=== PATIENT | female | born 1950 | race Hispanic/Latino ===

== ENCOUNTER 2016-06-24 09:27 | Inpatient (IN) | payer OTHER, MEDICARE ==
[2016-06-24] MEDS ORDERED: NORMAL SALINE 10 ML SYRINGE FLUSH IVP PRN ×2 (09:57→11:48)
[2016-06-24] MEDS ORDERED: ONDANSETRON 4 MG/2 ML VIAL IVP ONE (09:57)
[2016-06-24] MEDS ORDERED: Sodium Chloride 0.9% 1,000 ML PRIMARY IV ONE ×2 (09:57→11:48)
[2016-06-24 10:32] LABS: BASOPHILS # (AUTO) 0.02 10*3/UL; BASOPHILS % (AUTO) 0.2 % (0-1); EOSINOPHILS % (AUTO) 0 % (0-8); HEMATOCRIT 47.5 % (37.0-47.0); HEMOGLOBIN 16.1 g/dL (12.0-16.0); IMM GRAN % (AUTO) 0.2 % (0-5); IMM GRAN# (AUTO) 0.02 10*3/UL; LYMPHOCYTES # (AUTO) 1.37 10*3/uL; LYMPHOCYTES % (AUTO) 14.4 % (10-50); MEAN CORPUSCULAR HEMOGLOBIN 32.4 PG (27-31); MEAN CORPUSCULAR HGB CONC 33.9 g/dL (33-37); MEAN PLATELET VOLUME 10.1 FL (7.4-12.2); MONOCYTES # (AUTO) 1.17 10*3/UL (0.3-0.8); MONOCYTES % (AUTO) 12.3 % (5-15); NEUTROPHILS # (AUTO) 6.95 10*3/UL; NEUTROPHILS % (AUTO) 72.9 % (50-80); RDW COEFFICIENT OF VARIATION 14.5 % (11.5-14.5); RED BLOOD COUNT 4.97 10^6/uL (4.20-5.40); WHITE BLOOD COUNT 9.53 10^3/uL (4.8-10.8)
[2016-06-24 10:43] LABS: PLATELET MORPHOLOGY COMMENT NORMAL MORPHOLOGY (NORM)
[2016-06-24 10:48] LABS: BILIRUBIN,TOTAL 1.2 mg/dL (0.3-1.2); BUN/CREATININE RATIO 21.66 (6-20); CREATININE 2.4 mg/dL (0.50-1.20); POTASSIUM 4.1 meq/L (3.8-5.2); TOTAL PROTEIN 7.6 g/dL (6.1-8.0)
--- NOTE | 2016-06-24 11:23 | PDOC ---
Nausea/Vomiting/Diarrhea HPI - General Chief Complaint: Nausea / Vomiting / Diarrhea Stated Complaint: N/V/D Date Seen by Provider: 06/24/16 Time Seen by Provider: 09:45 Source: POSITIVE: Patient, Other (Daughter) Exam Limitations: POSITIVE: No limitations Nurse's Notes Reviewed & Considered: Yes - History of Present Illness Initial Comments: The patient is a 66-year-old female who is brought to the emergency room by her daughter. Patient states that for the last 3 days she has had diarrhea, 7-10 bowel movements daily. She states she also had some nausea and vomiting at the onset of her illness but has not had any vomiting today. Patient states she has felt dizzy. She states her stool has been "brown and watery"and sometimes she has some bright red bleeding in her stool; she states she has a history of "bleeding hemorrhoids". She states she has had little to eat in the last 3 days. She states whenever she drinks water she has a bowel movement. She's had an appendectomy, cholecystectomy and oophorectomy. 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 She has a vena caval filter and is presently on Xarelto. No abdominal or chest pain. No rashes or skin changes. Body Location Affected: REPORTS: Abdomen (Nausea vomiting and diarrhea as above) Timing: REPORTS: Gradual, Getting Worse (Diarrhea getting worse; vomiting resolved) Duration: >24 hours (3-4 days) Severity: Moderate Quality: REPORTS: Other (Patient denies any pain) Abdominal Pain Onset Location: DENIES: RUQ, LUQ, RLQ, LLQ, Epigastric, Periumbilical, Suprapubic, Generalized abdomen, Flank, Other Abdominal Pain Radiation: DENIES: No radiation, RUQ, LUQ, RLQ, LLQ, Epigastric, Periumbilical, Flank, Groin, Scapula, Shoulder, Chest, Back, Other Context: DENIES: None, Activity, Bending, Coughing, Fall, Lifting, Near Fall, Rest, Sitting, Sleep, Standing, Turning, Emotional stress, Camping, Bad Food, Out of Country Travel, Other, Recent Surgery, Recent Trauma Modifying Factors: improves with: Vomiting, Other (Diarrhea) Associated Symptoms: REPORTS: Vomiting, Diarrhea, Blood-Streaked Diarrhea, Watery Diarrhea Similar Symptoms Previously: No Recent Care Received: REPORTS: Recently Seen Any Prior Injuries Related to Current Complaint?: No - Patient Home Medications Home Medications: Home Medications Magnesium Oxide [Magnesium] 250 mg PO DAILY 09/09/12 [place]-3 Fatty Acids [Fish Oil] 300 mg PO DAILY 09/09/12 Oxygen (O2) 1 l NASAL HS #2 unit 09/09/12 Multivit with Calcium,Iron,Min [Women's Daily Multivitamin] 1 each PO QD tab Cpap 1 unit NS QHS unit 12/18/15 Amlodipine Bes/Olmesartan Med [Aline] 1 tab PO QHS #90 tab 03/27/16 Rivaroxaban [Xarelto] 1 tab PO QPM #90 tab 03/27/16 Tramadol HCl 1 tab PO QID PRN #120 tab 05/06/16 Atorvastatin Calcium [Lipitor] 1 tab PO QHS #90 tab 05/16/16 - Patient Allergies Allergies/Adverse Reactions: Allergies Allergy/AdvReac Type Severity Reaction Status Date / Time No Known Drug Allergies Allergy NOT Verified 06/24/16 09:46 APPLICABLE Past Medical History - heen HEENT History: Other (please comment) Additional HEENT History: PATIALS UPPER AND LOWER Cardiovascular History: Hypertension, DVTs, Hyperlipidemia Additional Cardiovasular History: HAS VENA CAVA FILTER 6 YRS AGO, ALSO HAS A VENOUS FILTER IN HER LEG Respiratory History: Home Oxygen Use, Home CPAP Use, Pulmonary Embolism, Other ( please comment) Additional Respiratory History: 2L AT HS Gastrointestinal History: GERD, Other (please comment) Additional Gastrointestinal History: BLEEDING HEMORRHOIDS Genitourinary History: Denies History Endocrine History: Denies History Musculoskeletal History: Arthritis, Back Pain, Osteoarthritis Prosthesis or Implant: No Additional Musculoskeletal History: SPINAL STENOSIS OF LUMBAR REGION Neurological History: TIA Additional Neurological History: 1995 WHEN SHE HAD A BLOOD DISORDER TTP Blood Disorders: Thrombocytopenia Additional Blood Disorders History: THROMBOTIC THROMBOCYTEPENIC PURPURA 1995. DEVELOPED LUPUS COAGULANT FROM BLOOD TRANSFUSION Psychiatric History: Depression History of Sexually Transmitted Diseases: No Female Reproductive History: Hysterectomy Cancer History: Other (please comment) Cancer Treatment / Date(s) of Treatment: HYSTER 1985 In Past Year Been Physically Harmed or Verbally Threatened: No (PER PATIENT) History of MDRO: No History of Other Communicable Diseases: No Tobacco Use: Never Smoker Alcohol Use: None Substance Use Type: None Previous Surgical History: Yes Type / Date of Surgery: APPY/ DONNELL/ P HYST/ VENA CAVA FILTER 2008/COLONOSCOPY/ VENOUS LEG FILTER Anesthesia Reactions: No Malignant Hyperthermia: No Family History of Malignant Hyperthermia: No Significant Family History: Heart disease, Cancer, Hypertension Past Medical History Reviewed: Reviewed - No Changes ROS - Limitations ROS Limitations: No Limitations Constitution: REPORTS: Denies Symptoms Cardiovascular: REPORTS: Denies Cardiac Symptoms Respiratory: REPORTS: Denies Resp Symptoms Neurological: REPORTS: Denies Neuro Symptoms Gastrointestinal: REPORTS: Nausea, Vomitting, Diarrhea Endocrine: REPORTS: Denies Symptoms Musculoskeletal: REPORTS: Denies MS Symptoms Genitourinary: REPORTS: Denies Symptoms Eyes: REPORTS: Denies Symptoms ENT: REPORTS: Denies Symptoms Skin: REPORTS: Denies Skin Symptoms Lympathic: REPORTS: Denies Lympathic Symptoms Immunologic: POSITIVE: Denies Symptoms Psychiatric: POSITIVE: Denies Psych Symptoms Nausea/Vomiting/Diarrhea Exam - General Appearance General Appearance: POSITIVE: Alert, Cooperative, No Acute Distress, No Evidence of Trauma - HEENT HEENT: POSITIVE: Head Inspection Nml, Eyes Inspection Nml, Ears Inspection Nml, Nose Inspection Nml, Oral/Dental Inspect. Nml, Pharynx Inspect. Nml, PERRL, EOMI - Neck Neck: POSITIVE: Supple, Normal Inspection, Non Tender - Respiratory Respiratory: POSITIVE: No Respiratory Distress, Breath Sounds Normal, Chest Non- Tender - Cardiovascular Cardiovascular: POSITIVE: Regular Rate and Rhythm, Heart Sounds Normal, Equal Pulses, Strong Pulses Peripheral Pulses: Radial (R): 2+, Radial (L): 2+ - Chest Chest: POSITIVE: Non Tender - Abdomen Abdomen: Soft: (All Quadrants), Normal Bowel Sounds: (All Quadrants), Denies Tenderness: (All Quadrants), No Splenomegaly: (All Quadrants), No Hepatomegaly: (All Quadrants), No Guarding: (All Quadrants), No Rebound: (All Quadrants), No Palpable Pulse: (All Quadrants), No Palpabale Mass: (All Quadrants), No Distention: (All Quadrants), No Rigidity: (All Quadrants) - Back Back: POSITIVE: Normal Inspection - Skin Skin: POSITIVE: Intact, Normal For Race, Warm, Dry, No Rash - Extremities Extremity: Non-Tender: (All Extremities), Normal ROM: (All Extremities), Normal Inspection: (All Extremities) - Neurological / Psychological Neurological: POSITIVE: Affect 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, 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, 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 As Tested, Motor Normal, Sensation Normal N/V/D Progress - Results Reviewed by me Lab Results Reviewed: Yes Lab Results:: Laboratory Results 06/24/16 Range/Units 10:07 WBC 9.53 (4.8-10.8) 10^3/uL RBC 4.97 (4.20-5.40) 10^6/uL Hgb 16.1 H (12.0-16.0) g/dL Hct 47.5 H (37.0-47.0) % MCV 95.6 (81-99) FL MCH 32.4 H (27-31) PG MCHC 33.9 (33-37) g/dL RDW Std Deviation 49.4 (39-50) fL RDW Coeff of Barrera 14.5 (11.5-14.5) % Plt Count 226 (140-350) 10*3/uL MPV 10.1 (7.4-12.2) FL Immature Gran % (Auto) 0.2 (0-5) % Neut % (Auto) 72.9 (50-80) % Lymph % (Auto) 14.4 (10-50) % Will % (Auto) 12.3 (5-15) % Eos % (Auto) 0 (0-8) % Baso % (Auto) 0.2 (0-1) % Immature Gran # (Auto) 0.02 10*3/UL Neut # (Auto) 6.95 10*3/UL Lymph # (Auto) 1.37 10*3/uL Will # (Auto) 1.17 H (0.3-0.8) 10*3/UL Eos # (Auto) 0 10*3/UL Baso # (Auto) 0.02 10*3/UL WBC Morphology Comment Normal morphology (NORM) Plt Morphology Comment Normal morphology (NORM) RBC Morph Comment Normal morphology (NORM) PT 14.0 H (9.7-11.4) secs INR 1.35 (0.00-5.90) N/A APTT Pending Sodium 138 (135-145) meq/L Potassium 4.1 (3.8-5.2) meq/L Chloride 104 (98-112) meq/L Carbon Dioxide 18 L (23-33) meq/L Anion Gap 16 (5-20) BUN 52 H (7-22) mg/dL Creatinine 2.4 H (0.50-1.20) mg/dL Estimated GFR 20 (>60 ml/min/1.73m(2)) BUN/Creatinine Ratio 21.66 H (6-20) Glucose 106 (78-110) mg/dL Calculated Osmolality 299.0 H (267-292) mOsm/kg Calcium 9.0 (8.7-10.7) mg/dL Magnesium 2.0 (1.6-2.4) mg/dL Total Bilirubin 1.2 (0.3-1.2) mg/dL AST 33 (8-39) IU/L ALT 41 (9-52) IU/L Alkaline Phosphatase 78 (38-126) IU/L Total Protein 7.6 (6.1-8.0) g/dL Albumin 4.5 (3.5-4.8) g/dL Globulin 3.1 (2.50-4.10) g/dL Albumin/Globulin Ratio 1.40 (1.3-2.0) mg/g Amylase 75 (30-110) U/L Lipase 125 (23-300) IU/L - Patient's Progress Pain Medication Addressed: POSITIVE: Not Applicable School/Work Release Addressed: POSITIVE: Not Applicable Re-examine Time: 11:00 Re-Examine Comment: Patient hydrated with a liter of normal saline. She feels somewhat better. BUN is 52 and creatinine is 2.4; on 08/28/2015 BUN was 16 and creatinine of 0.7. Repeat blood pressure after hydration was 125/103. Status: POSITIVE: Improved, Re-Examined - Consult Consult (If Yes, Name of Consulting MD & Time Called): Yes (Dr. Bains, hospitalist, [id number]) Consulting MD will see pt:: POSITIVE: [facility] [place] Counseled: POSITIVE: Patient, Family, RE: Lab Results, RE: DX, RE: Need for F/U Patient Care Time - Estimated PCT Patient Care Time (In Minutes): 45 Vital Signs - Recent Vital Signs Vital Signs: Vital Signs (Last 8 hours) Temp Pulse Resp BP Pulse Ox 06/24/16 09:27 98.8 F 76 19 97/40 95 - VS Reviewed Vital Signs Reviewed: Yes Discharge Clinical Impression: Dehydration, Gastroenteritis, Renal failure Discharge Disposition: Admit to Inpatient Condition: Fair Date Decision to Admit to Inpatient: 06/24/16 Time Decision to Admit to Inpatient: 11:00
[2016-06-24] MEDS ORDERED: ACETAMINOPHEN 500 MG TABLET PO PRN (11:48)
[2016-06-24] MEDS ORDERED: ONDANSETRON 4 MG/2 ML VIAL IVP PRN (11:48)
--- NOTE | 2016-06-24 12:33 | PDOC ---
History and Physical - History of Present Illness Date and Time of Service: 06/24/2016, 12:30 Chief Complaint: Nausea and vomiting and diarrhea History of Present Illness: This is a very pleasant 66-year-old female who has a prior history of a pulmonary emboli for which she is on chronic Xarelto therapy, hypertension, and hypercholesterolemia. She states that on Thursday she started developing nausea and vomiting and felt like she had fevers as well. This progressed with some abdominal pain and diarrhea. She states she is pain-free now and then dialed she and vomiting have resolved but the diarrhea has persisted. She tried Imodium but it helped only a little. It did not relieve the symptoms. She states that she does have an appetite. She notes that she is on city water but drinks well water from her daughter's place frequently. She also states that she has not been on antibiotics in the last 6 months. She's had nausea and vomiting and diarrhea before, but nothing that is been this persistent or lasted this long. On lab studies in the emergency room, the patient had an elevated BUN and creatinine and is in probable prerenal azotemia and renal failure. Past Medical History Medical History: 1. TTP treated with chemotherapy, remote. 2. Pulmonary embolism about 6 years ago now on Xarelto therapy for prophylaxis. 3. Hypertension. 4. Hypercholesterolemia. 5. History of cervical cancer status post hysterectomy. Surgical History: 1. Appendectomy. 2. Cholecystectomy. 3. Ostomy with eventual takedown in the setting of her ruptured appendix. 4. Hysterectomy due to cervical cancer. Pertinent Family History: Significant for hypertension and cancer. Past Social History: Used to smoke but no longer does. Doesn't drink alcohol. Lives alone. Has children described as healthy. Tobacco Use: Former Smoker Substance Use Type: None Alcohol Use: None Medication / Allergies Home Medications: Home Medications Medication Instructions Recorded Confirmed Type Magnesium Oxide [Magnesium] 250 mg PO DAILY 09/09/12 06/24/16 History [place]-3 Fatty Acids [Fish Oil] 300 mg PO DAILY 09/09/12 06/24/16 History Oxygen (O2) 1 l NASAL HS #2 unit 09/09/12 06/24/16 History Multivit with Calcium,Iron,Min 1 each PO QD tab 03/19/15 06/24/16 History [Women's Daily Multivitamin] Cpap 1 unit NS QHS unit 12/18/15 06/24/16 History Amlodipine Bes/Olmesartan Med 1 tab PO QHS #90 tab 03/27/16 06/24/16 Clinic [Aline] Rivaroxaban [Xarelto] 1 tab PO QPM #90 tab 03/27/16 06/24/16 Clinic Tramadol HCl 1 tab PO QID PRN #120 tab 05/06/16 06/24/16 Clinic Atorvastatin Calcium [Lipitor] 1 tab PO QHS #90 tab 05/16/16 06/24/16 Clinic Allergies/Adverse Reactions: Allergies Allergy/AdvReac Type Severity Reaction Status Date / Time No Known Drug Allergies Allergy NOT Verified 06/24/16 11:53 APPLICABLE Review of Systems - Review of Systems All Systems: Reviewed & No Additional Complaints Except as Stated (I did a 12 point review of systems and it was as per history of present illness with systems being negative except as noted below.) - Gastrointestinal Gastrointestinal / Abdominal: REPORTS: Nausea, Vomiting, Diarrhea, Abdominal Pain, Other (Has problems with hemorrhoids, known with a history of a colonoscopy. She states that the hemorrhoid often times will bleed. She does not think there is any blood in the stool otherwise.) - Hematlogic / Lymphatic Hematologic / Lymphatic: REPORTS: Easy Bleeding/Bruising, Other (TTP in the past.) Exam - Vitals Vital Signs: Vital Signs Vital Signs - Last Taken Temperature 98.2 F 06/24/16 12:10 Pulse Rate 74 06/24/16 12:10 Respiratory Rate 20 06/24/16 12:13 Blood Pressure 126/50 06/24/16 12:10 Pulse Ox 92 06/24/16 12:10 Height 5 ft Weight 217 lb 6.4 oz - General General Appearance: POSITIVE: No Acute Distress, Cooperative - Head Head Exam: POSITIVE: Normal Inspection, Normocephalic, Atraumatic - Eye Eye Exam: POSITIVE: No Scleral Icterus - ENT ENT Exam: POSITIVE: Mucous Membranes Dry - Neck Neck Exam: POSITIVE: Normal Inspection, No Tenderness, No Thyromegaly - Respiratory Respiratory Exam: POSITIVE: Clear to Auscultation - Bilaterally, Breathing Non Labored, Normal to Percussion and Palpation - Cardiovascular Cardiovascular Exam: POSITIVE: RRR, No Murmur, No Clicks, No Gallops, No Rubs, No JVD - GI/Abdominal GI/Abdominal Exam: POSITIVE: Normal Bowel Sounds, Non Tender, Non Distended, Soft - Rectal Rectal Exam: POSITIVE: Deferred - External Exam: POSITIVE: Deferred Exam: POSITIVE: Deferred - Extremities Extremities Exam: POSITIVE: No Clubbing Present, No Edema Present, No Cyanosis Present - Back Back Exam: POSITIVE: No CVA Tenderness - Neurological Neurological Exam: POSITIVE: Alert, Oriented x 3, No Facial Droop, Speech Intact / Clear, Moves All Extremities Equally - Psychiatric Psychiatric Exam: POSITIVE: Normal Affect, Normal Mood Results - Labs CBC and BMP: 06/24/16 10:07 06/24/16 10:07 Labs - Last 24 Hours: Laboratory Results 06/24/16 Range/Units 10:07 WBC 9.53 (4.8-10.8) 10^3/uL RBC 4.97 (4.20-5.40) 10^6/uL Hgb 16.1 H (12.0-16.0) g/dL Hct 47.5 H (37.0-47.0) % MCV 95.6 (81-99) FL MCH 32.4 H (27-31) PG MCHC 33.9 (33-37) g/dL RDW Std Deviation 49.4 (39-50) fL RDW Coeff of Barrera 14.5 (11.5-14.5) % Plt Count 226 (140-350) 10*3/uL MPV 10.1 (7.4-12.2) FL Immature Gran % (Auto) 0.2 (0-5) % Neut % (Auto) 72.9 (50-80) % Lymph % (Auto) 14.4 (10-50) % [place] % (Auto) 12.3 (5-15) % Eos % (Auto) 0 (0-8) % Baso % (Auto) 0.2 (0-1) % Immature Gran # (Auto) 0.02 10*3/UL Neut # (Auto) 6.95 10*3/UL Lymph # (Auto) 1.37 10*3/uL [place] # (Auto) 1.17 H (0.3-0.8) 10*3/UL Eos # (Auto) 0 10*3/UL Baso # (Auto) 0.02 10*3/UL WBC Morphology Comment Normal morphology (NORM) Plt Morphology Comment Normal morphology (NORM) RBC Morph Comment Normal morphology (NORM) PT 14.0 H (9.7-11.4) secs INR 1.35 (0.00-5.90) N/A APTT Pending Sodium 138 (135-145) meq/L Potassium 4.1 (3.8-5.2) meq/L Chloride 104 (98-112) meq/L Carbon Dioxide 18 L (23-33) meq/L Anion Gap 16 (5-20) BUN 52 H (7-22) mg/dL Creatinine 2.4 H (0.50-1.20) mg/dL Estimated GFR 20 (>60 ml/min/1.73m(2)) BUN/Creatinine Ratio 21.66 H (6-20) Glucose 106 (78-110) mg/dL Calculated Osmolality 299.0 H (267-292) mOsm/kg Calcium 9.0 (8.7-10.7) mg/dL Magnesium 2.0 (1.6-2.4) mg/dL Total Bilirubin 1.2 (0.3-1.2) mg/dL AST 33 (8-39) IU/L ALT 41 (9-52) IU/L Alkaline Phosphatase 78 (38-126) IU/L Total Protein 7.6 (6.1-8.0) g/dL Albumin 4.5 (3.5-4.8) g/dL Globulin 3.1 (2.50-4.10) g/dL Albumin/Globulin Ratio 1.40 (1.3-2.0) mg/g Amylase 75 (30-110) U/L Lipase 125 (23-300) IU/L Assessment and Plan - Patient Problems (1) Acute renal failure Current Visit: Yes Status: Acute Qualifiers: Acute renal failure type: unspecified Qualified Description: Acute renal failure, unspecified acute renal failure type Qualifier Code(s): ( N17.9) Acute kidney failure, unspecified (2) Gastroenteritis Current Visit: Yes Status: Acute (3) Hypertension Current Visit: Yes Status: Acute Qualifiers: Hypertension type: essential hypertension Qualified Description: Essential hypertension Qualifier Code(s): (I10) Essential (primary) hypertension (4) Hypercholesterolemia Current Visit: Yes Status: Acute (5) History of pulmonary embolism Current Visit: Yes Status: Acute - Assessment / Plan Additional Assessment/Plan Details: Admit the patient. Bolus normal saline and then continue normal saline with potassium chloride at 125 MLS per hour. Patient was mildly hypotensive in the emergency room but responded to fluids there. Stool studies are ordered and are pending at this time. Imodium The blood is from hemorrhoid and so I think we will use Anusol suppositories to try and shrink that and get the patient set up with surgery as an outpatient to evaluate further. Clear liquid diet to start out with and if she tolerates then will advance. Antiemetics. If pain persists, consider CT of abdomen and pelvis but hold off for now as there is no pain. I discussed above plan with the patient and she agreed, patient's daughter and son-in-law were present and they agreed. All questions were answered.
[2016-06-24] MEDS: Loperamide Tab 2 MG TABLET PO SCH ×3 (14:01→20:15)
[2016-06-24] MEDS ORDERED: Rivaroxaban Tab 10 MG TAB PO SCH (17:00)
[2016-06-24] MEDS ORDERED: CALCIUM CARBONATE 500 MG (TUMS) CHEWABLE TABLET PO PRN (18:59)
[2016-06-24] MEDS: ATORVASTATIN 40 MG TABLET PO SCH (20:15)
[2016-06-24] MEDS: Apixaban Tab 2.5 MG TABLET PO SCH (20:15)
[2016-06-24] MEDS: HYDROCORTISONE 25 MG SUPPOSITORY RECTAL SCH (20:17)
[2016-06-24] MEDS ORDERED: GLYCERIN/WITCH HAZEL 1 BOX TOPICAL PRN (20:51)
[2016-06-24] MEDS: traMADol 50 MG TABLET PO PRN (22:20)
[2016-06-25] MEDS: Loperamide Tab 2 MG TABLET PO SCH ×3 (01:29→09:28)
[2016-06-25 02:50] LABS: BILIRUBIN,URINE NEGATIVE (NEG); CLARITY,URINE CLEAR (CLEAR); GLUCOSE, URINE (UA) NEGATIVE (NEG); LEUKOCYTE ESTERASE ,URINE TRACE (NEG); NITRATE,URINE NEGATIVE (NEG); OCCULT BLOOD,URINE MODERATE (NEG); PROTEIN,URINE 30 mg/dl (NEG); UROBILINOGEN,URINE 0.2 EU/dL (0.2)
[2016-06-25 02:52] LABS: URINE SAMPLE TYPE VOIDED SPECIMEN
[2016-06-25 02:57] LABS: BACTERIA,URINE RARE; RBC,URINE 0-2 /hpf; RENAL EPITHELIAL CELLS,URINE RARE; SQUAMOUS EPITHELIAL CELL,UR FEW
[2016-06-25] MEDS: traMADol 50 MG TABLET PO PRN ×2 (04:27→22:08)
[2016-06-25 06:23] LABS: BASOPHILS # (AUTO) 0.01 10*3/UL; BASOPHILS % (AUTO) 0.1 % (0-1); EOSINOPHILS % (AUTO) 0.4 % (0-8); HEMATOCRIT 43.1 % (37.0-47.0); HEMOGLOBIN 13.8 g/dL (12.0-16.0); IMM GRAN % (AUTO) 0.1 % (0-5); IMM GRAN# (AUTO) 0.01 10*3/UL; LYMPHOCYTES # (AUTO) 1.59 10*3/uL; LYMPHOCYTES % (AUTO) 22.1 % (10-50); MEAN CORPUSCULAR HEMOGLOBIN 31.2 PG (27-31); MEAN PLATELET VOLUME 10.3 FL (7.4-12.2); MONOCYTES # (AUTO) 0.92 10*3/UL (0.3-0.8); MONOCYTES % (AUTO) 12.8 % (5-15); NEUTROPHILS # (AUTO) 4.65 10*3/UL; NEUTROPHILS % (AUTO) 64.5 % (50-80); RDW COEFFICIENT OF VARIATION 14.5 % (11.5-14.5); RED BLOOD COUNT 4.42 10^6/uL (4.20-5.40); WHITE BLOOD COUNT 7.21 10^3/uL (4.8-10.8)
[2016-06-25 06:34] LABS: BLOOD UREA NITROGEN 25 mg/dL (7-22); BUN/CREATININE RATIO 27.77 (6-20); CALCIUM 8.1 mg/dL (8.7-10.7); CHLORIDE 114 meq/L (98-112); CREATININE 0.9 mg/dL (0.50-1.20); EST GLOMERULAR FILTRATION > 60 (>60 ml/min/1.73m(2)); GLUCOSE 81 mg/dL (78-110); POTASSIUM 4.1 meq/L (3.8-5.2); SODIUM 140 meq/L (135-145)
[2016-06-25 06:37] LABS: PLATELET MORPHOLOGY COMMENT NORMAL MORPHOLOGY (NORM)
[2016-06-25] MEDS ORDERED: ACETAMINOPHEN 325 MG TABLET PO PRN (08:17)
[2016-06-25] MEDS: HYDROCORTISONE 25 MG SUPPOSITORY RECTAL SCH ×2 (09:28→20:55)
[2016-06-25] MEDS: Apixaban Tab 2.5 MG TABLET PO SCH (09:28)
--- NOTE | 2016-06-25 10:23 | PDOC(PROG) ---
Date and Time of Service: 06/25/2016, 1024 Interval History: Still having a lot of diarrhea episodes. Overall states that her belly pain is resolved. No nausea or vomiting. She like to try regular food. Kidneys look better and she is continuing on fluids. Objective : Data - Labs CBC and BMP: 06/25/16 05:43 06/25/16 05:43 Labs - Last 24 Hours: Laboratory Results 06/25/16 06/25/16 Range/Units 02:30 05:43 WBC 7.21 (4.8-10.8) 10^3/uL RBC 4.42 (4.20-5.40) 10^6/uL Hgb 13.8 (12.0-16.0) g/dL Hct 43.1 (37.0-47.0) % MCV 97.5 (81-99) FL MCH 31.2 H (27-31) PG MCHC 32.0 L (33-37) g/dL RDW Std Deviation 51.4 H (39-50) fL RDW Coeff of Barrera 14.5 (11.5-14.5) % Plt Count 196 (140-350) 10*3/uL MPV 10.3 (7.4-12.2) FL Immature Gran % (Auto) 0.1 (0-5) % Neut % (Auto) 64.5 (50-80) % Lymph % (Auto) 22.1 (10-50) % [place] % (Auto) 12.8 (5-15) % Eos % (Auto) 0.4 (0-8) % Baso % (Auto) 0.1 (0-1) % Immature Gran # (Auto) 0.01 10*3/UL Neut # (Auto) 4.65 10*3/UL Lymph # (Auto) 1.59 10*3/uL [place] # (Auto) 0.92 H (0.3-0.8) 10*3/UL Eos # (Auto) 0.03 10*3/UL Baso # (Auto) 0.01 10*3/UL WBC Morphology Comment Normal morphology (NORM) Plt Morphology Comment Normal morphology (NORM) RBC Morph Comment Normal morphology (NORM) Sodium 140 (135-145) meq/L Potassium 4.1 (3.8-5.2) meq/L Chloride 114 H (98-112) meq/L Carbon Dioxide 17 L (23-33) meq/L Anion Gap 9 (5-20) BUN 25 H (7-22) mg/dL Creatinine 0.9 (0.50-1.20) mg/dL Estimated GFR > 60 (>60 ml/min/1.73m(2)) BUN/Creatinine Ratio 27.77 H (6-20) Glucose 81 (78-110) mg/dL Calculated Osmolality 292.0 (267-292) mOsm/kg Calcium 8.1 L (8.7-10.7) mg/dL Ur Collection Type Voided specimen Urine Color Yellow Urine Clarity Clear (CLEAR) Urine pH 6.0 (5.0-8.5) Ur Specific Darling 1.015 (1.005-1.030) Urine Protein 30 (NEG) mg/dl Urine Glucose (UA) Negative (NEG) mg/dL Urine Ketones 15 (NEG) Urine Occult Blood Moderate H (NEG) Urine Nitrate Negative (NEG) Urine Bilirubin Negative (NEG) Urine Urobilinogen 0.2 (0.2) EU/dL Ur Leukocyte Esterase Trace (NEG) Urine RBC 0-2 (NONE) /hpf Urine WBC 3-5 (NONE) Ur Squamous Epith Cells Few (NONE) Ur Renal Epithelial Cell Rare (NONE) Urine Crystals None Urine Bacteria Rare (NONE) Urine Casts None (NONE) Urine Mucus None (NONE) Urine Trichomonas None (NONE) Urine Yeast None (NONE) Ur Culture Indicated? Culture not set Objective : Exam - General General Appearance: No Acute Distress, Cooperative Additional General Exam Details: Vital Signs - Last Taken Temperature 98.2 F 06/25/16 08:02 Pulse Rate 66 06/25/16 08:02 Respiratory Rate 18 06/25/16 08:02 Blood Pressure 114/59 06/25/16 08:02 Pulse Ox 92 06/25/16 08:02 On room air oxygen. - Eye Eye Exam: No Scleral Icterus - Respiratory Respiratory Exam: Clear to Auscultation - Bilaterally, Breathing Non Labored - Cardiovascular Cardiovascular Exam: RRR, No Murmur, No Clicks, No Gallops, No Rubs, No JVD - GI/Abdominal GI/Abdominal Exam: Normal Bowel Sounds, Non Tender, Non Distended, Soft - Extremities Extremities Exam: No Clubbing Present, No Edema Present, No Cyanosis Present - Neurological Neurological Exam: Alert, Oriented x 3, No Facial Droop, Speech Intact / Clear, Moves All Extremities Equally - Psychiatric Psychiatric Exam: Normal Affect, Normal Mood Assessment and Plan - Patient Problems (1) Gastroenteritis Current Visit: Yes Status: Acute (2) Diverticulosis Current Visit: Yes Status: Acute Qualifiers: Diverticulosis site: diverticulosis of large intestine Diverticulosis bleeding: diverticulosis without bleeding Qualified Description: Diverticulosis of large intestine without hemorrhage Qualifier Code(s): ( K57.30) Diverticulosis of large intestine without perforation or abscess without bleeding (3) Acute renal failure Current Visit: Yes Status: Resolved Qualifiers: Acute renal failure type: unspecified Qualified Description: Acute renal failure, unspecified acute renal failure type Qualifier Code(s): ( N17.9) Acute kidney failure, unspecified (4) Hypertension Current Visit: Yes Status: Acute Qualifiers: Hypertension type: essential hypertension Qualified Description: Essential hypertension Qualifier Code(s): (I10) Essential (primary) hypertension (5) Hypercholesterolemia Current Visit: Yes Status: Acute (6) History of pulmonary embolism Current Visit: Yes Status: Acute - Assessment / Plan Additional Assessment/Plan Details: Overall, happy with progress to this point. She looks better hydrated, but given continued diarrhea like to watch her another day to make sure she can tolerate a normal diet prior to discharge. In addition I like to check the kidneys one more time. I doubt diverticulitis but if pain returns or persists we may need to consider doing imaging. I would really like to avoid a CT scan with contrast given her acute renal failure episode. Continue to hold blood pressure medications and resume them in a week or 2. Likely discharge tomorrow. Thus far no infectious etiology for the diarrhea. However, if the frequency still remains words that we may need to consider a few days of Zithromax therapy. Outpatient evaluation to be arranged for hemorrhoids.
[2016-06-25] MEDS: Diphenoxylate/Atropine 2.5/0.025 mg Tab PO SCH ×3 (12:38→21:02)
[2016-06-25] MEDS: ATORVASTATIN 40 MG TABLET PO SCH (20:55)
[2016-06-25] MEDS: NYSTATIN 15 GM POWDER TOPICAL SCH (20:55)
[2016-06-25] MEDS ORDERED: Rivaroxaban Tab 10 MG TAB PO SCH (21:00)
[2016-06-26] MEDS: Diphenoxylate/Atropine 2.5/0.025 mg Tab PO SCH ×2 (04:17→09:23)
[2016-06-26 07:03] LABS: BLOOD UREA NITROGEN 11 mg/dL (7-22); BUN/CREATININE RATIO 15.71 (6-20); CALCIUM 8.1 mg/dL (8.7-10.7); CHLORIDE 113 meq/L (98-112); CREATININE 0.7 mg/dL (0.50-1.20); EST GLOMERULAR FILTRATION > 60 (>60 ml/min/1.73m(2)); GLUCOSE 86 mg/dL (78-110); POTASSIUM 4.4 meq/L (3.8-5.2); SODIUM 142 meq/L (135-145)
[2016-06-26 07:58] VITALS: RESP 16; TEMP 98
[2016-06-26] MEDS: NYSTATIN 15 GM POWDER TOPICAL SCH (09:22)
[2016-06-26] MEDS: HYDROCORTISONE 25 MG SUPPOSITORY RECTAL SCH (09:22)
--- NOTE | 2016-06-26 11:14 | DCSUMMARY ---
Hospitalization Summary Admit Date: 06/24/16 Discharge Date: 06/26/16 Primary Diagnosis:: acute renal failure, prerenal, resolved. Hospital Course: Summary pleasant 66-year-old female that came in with nausea, vomiting, and diarrhea symptoms. They persisted despite attempted interventions at home and the patient was found to be in acute renal failure. She was admitted, IV fluids were started, antiemetics and antidiarrheals were written for. Stool studies were negative for infection. The patient's symptoms gradually resolved and we also held her blood pressure medication and her kidney function improved and resolved. She is now back to baseline kidney function. The only other issue during the hospital stays that she had hemorrhoids which cause some bleeding. She states that the hemorrhoids feel much better with some Anusol suppositories with hydrocortisone. We'll continue those and scheduled the patient was surgery to visit for any potential surgical procedures for hemorrhoids. Today, the patient denies chest pain, denies shortness breath, denies abdominal pain, states that her diarrhea has resolved. She is ready to go home. We will continue to hold her blood pressure medication for one more week and have her resume it then. Assessment and Plan: 1. As per discharge assessments noted 2. Disposition: Patient is discharged home. 3. Condition on discharge, stable and improved. 4. Diet: regular diet 5. Activities: resume normal activities 6. Follow-Up: 1. Primary care provider one week 2. Surgery in 3 weeks 7. Medications at the Time of Discharge: Home Medications Medication Instructions Recorded Confirmed Type Magnesium Oxide [Magnesium] 250 mg PO DAILY 09/09/12 06/24/16 History [place]hart-3 Fatty Acids [Fish Oil] 300 mg PO DAILY 09/09/12 06/24/16 History Oxygen (O2) 1 l NASAL HS #2 unit 09/09/12 06/24/16 History Multivit with Calcium,Iron,Min 1 each PO QD tab 03/19/15 06/24/16 History [Women's Daily Multivitamin] Cpap 1 unit NS QHS unit 12/18/15 06/24/16 History Amlodipine Bes/Olmesartan Med 1 tab PO QHS #90 tab 03/27/16 06/24/16 Clinic [[facility]] Rivaroxaban [Xarelto] 1 tab PO QPM #90 tab 03/27/16 06/24/16 Clinic Tramadol HCl 1 tab PO QID PRN #120 tab 05/06/16 06/24/16 [facility] Atorvastatin Calcium [Lipitor] 1 tab PO QHS #90 tab 05/16/16 06/24/16 [facility] Hydrocortisone Acetate Supp 25 mg RECTAL BID #20 supp 06/26/16 Rx [Anucort-HC Supp] 8. Time, care, counseling and coordination of care for this discharge is less than 30 minutes. Exam - Vitals Vital Signs: Vital Signs Vital Signs - Last Taken Temperature 98 F 06/26/16 07:57 Pulse Rate 52 L 06/26/16 07:57 Respiratory Rate 16 06/26/16 07:57 Blood Pressure 133/61 06/26/16 07:57 Pulse Ox 93 06/26/16 07:57 Currently on room air oxygen. - General General Appearance: POSITIVE: No Acute Distress, Cooperative - Head Head Exam: POSITIVE: Atraumatic - Eye Eye Exam: POSITIVE: No Scleral Icterus - Respiratory Respiratory Exam: POSITIVE: Clear to Auscultation - Bilaterally, Breathing Non Labored - Cardiovascular Cardiovascular Exam: POSITIVE: RRR, No Murmur, No Clicks, No Gallops, No Rubs, No JVD - GI/Abdominal GI/Abdominal Exam: POSITIVE: Normal Bowel Sounds, Non Tender, Non Distended, Soft - Extremities Extremities Exam: POSITIVE: No Clubbing Present, No Edema Present, No Cyanosis Present - Neurological Neurological Exam: POSITIVE: Alert, Oriented x 3, No Facial Droop, Speech Intact / Clear, Moves All Extremities Equally Data Perinent Studies: Laboratory Results 06/24/16 06/25/16 06/25/16 Range/Units 10:07 02:30 05:43 WBC 9.53 7.21 (4.8-10.8) 10^3/uL RBC 4.97 4.42 (4.20-5.40) 10^6/uL Hgb 16.1 H 13.8 (12.0-16.0) g/dL Hct 47.5 H 43.1 (37.0-47.0) % MCV 95.6 97.5 (81-99) FL MCH 32.4 H 31.2 H (27-31) PG MCHC 33.9 32.0 L (33-37) g/dL RDW Std Deviation 49.4 51.4 H (39-50) fL RDW Coeff of Barrera 14.5 14.5 (11.5-14.5) % Plt Count 226 196 (140-350) 10*3/uL MPV 10.1 10.3 (7.4-12.2) FL Immature Gran % (Auto) 0.2 0.1 (0-5) % Neut % (Auto) 72.9 64.5 (50-80) % Lymph % (Auto) 14.4 22.1 (10-50) % Cobb % (Auto) 12.3 12.8 (5-15) % Eos % (Auto) 0 0.4 (0-8) % Baso % (Auto) 0.2 0.1 (0-1) % Immature Gran # (Auto) 0.02 0.01 10*3/UL Neut # (Auto) 6.95 4.65 10*3/UL Lymph # (Auto) 1.37 1.59 10*3/uL Cobb # (Auto) 1.17 H 0.92 H (0.3-0.8) 10*3/UL Eos # (Auto) 0 0.03 10*3/UL Baso # (Auto) 0.02 0.01 10*3/UL WBC Morphology Comment Normal morphology Normal morphology (NORM) Plt Morphology Comment Normal morphology Normal morphology (NORM) RBC Morph Comment Normal morphology Normal morphology (NORM) PT 14.0 H (9.7-11.4) secs INR 1.35 (0.00-5.90) N/A APTT 49.0 H (22.6-31.3) SECS Sodium 138 140 (135-145) meq/L Potassium 4.1 4.1 (3.8-5.2) meq/L Chloride 104 114 H (98-112) meq/L Carbon Dioxide 18 L 17 L (23-33) meq/L Anion Gap 16 9 (5-20) BUN 52 H 25 H (7-22) mg/dL Creatinine 2.4 H 0.9 (0.50-1.20) mg/dL Estimated GFR 20 > 60 (>60 ml/min/1.73m(2)) BUN/Creatinine Ratio 21.66 H 27.77 H (6-20) Glucose 106 81 (78-110) mg/dL Calculated Osmolality 299.0 H 292.0 (267-292) mOsm/kg Calcium 9.0 8.1 L (8.7-10.7) mg/dL Magnesium 2.0 (1.6-2.4) mg/dL Total Bilirubin 1.2 (0.3-1.2) mg/dL AST 33 (8-39) IU/L ALT 41 (9-52) IU/L Alkaline Phosphatase 78 (38-126) IU/L Total Protein 7.6 (6.1-8.0) g/dL Albumin 4.5 (3.5-4.8) g/dL Globulin 3.1 (2.50-4.10) g/dL Albumin/Globulin Ratio 1.40 (1.3-2.0) mg/g Amylase 75 (30-110) U/L Lipase 125 (23-300) IU/L Ur Collection Type Voided specimen Urine Color Yellow Urine Clarity Clear (CLEAR) Urine pH 6.0 (5.0-8.5) Ur Specific [place] 1.015 (1.005-1.030) Urine Protein 30 (NEG) mg/dl Urine Glucose (UA) Negative (NEG) mg/dL Urine Ketones 15 (NEG) Urine Occult Blood Moderate H (NEG) Urine Nitrate Negative (NEG) Urine Bilirubin Negative (NEG) Urine Urobilinogen 0.2 (0.2) EU/dL Ur Leukocyte Esterase Trace (NEG) Urine RBC 0-2 (NONE) /hpf Urine WBC 3-5 (NONE) Ur Squamous Epith Cells Few (NONE) Ur Renal Epithelial Cell Rare (NONE) Urine Crystals None Urine Bacteria Rare (NONE) Urine Casts None (NONE) Urine Mucus None (NONE) Urine Trichomonas None (NONE) Urine Yeast None (NONE) Ur Culture Indicated? Culture not set 06/26/16 Range/Units 05:54 WBC (4.8-10.8) 10^3/uL RBC (4.20-5.40) 10^6/uL Hgb (12.0-16.0) g/dL Hct (37.0-47.0) % MCV (81-99) FL MCH (27-31) PG MCHC (33-37) g/dL RDW Std Deviation (39-50) fL RDW Coeff of Barrera (11.5-14.5) % Plt Count (140-350) 10*3/uL MPV (7.4-12.2) FL Immature Gran % (Auto) (0-5) % Neut % (Auto) (50-80) % Lymph % (Auto) (10-50) % Cobb % (Auto) (5-15) % Eos % (Auto) (0-8) % Baso % (Auto) (0-1) % Immature Gran # (Auto) 10*3/UL Neut # (Auto) 10*3/UL Lymph # (Auto) 10*3/uL Cobb # (Auto) (0.3-0.8) 10*3/UL Eos # (Auto) 10*3/UL Baso # (Auto) 10*3/UL WBC Morphology Comment (NORM) Plt Morphology Comment (NORM) RBC Morph Comment (NORM) PT (9.7-11.4) secs INR (0.00-5.90) N/A APTT (22.6-31.3) SECS Sodium 142 (135-145) meq/L Potassium 4.4 (3.8-5.2) meq/L Chloride 113 H (98-112) meq/L Carbon Dioxide 20 L (23-33) meq/L Anion Gap 9 (5-20) BUN 11 (7-22) mg/dL Creatinine 0.7 (0.50-1.20) mg/dL Estimated GFR > 60 (>60 ml/min/1.73m(2)) BUN/Creatinine Ratio 15.71 (6-20) Glucose 86 (78-110) mg/dL Calculated Osmolality 291.0 (267-292) mOsm/kg Calcium 8.1 L (8.7-10.7) mg/dL Magnesium (1.6-2.4) mg/dL Total Bilirubin (0.3-1.2) mg/dL AST (8-39) IU/L ALT (9-52) IU/L Alkaline Phosphatase (38-126) IU/L Total Protein (6.1-8.0) g/dL Albumin (3.5-4.8) g/dL Globulin (2.50-4.10) g/dL Albumin/Globulin Ratio (1.3-2.0) mg/g Amylase (30-110) U/L Lipase (23-300) IU/L Ur Collection Type Urine Color Urine Clarity (CLEAR) Urine pH (5.0-8.5) Ur Specific [place] (1.005-1.030) Urine Protein (NEG) mg/dl Urine Glucose (UA) (NEG) mg/dL Urine Ketones (NEG) Urine Occult Blood (NEG) Urine Nitrate (NEG) Urine Bilirubin (NEG) Urine Urobilinogen (0.2) EU/dL Ur Leukocyte Esterase (NEG) Urine RBC (NONE) /hpf Urine WBC (NONE) Ur Squamous Epith Cells (NONE) Ur Renal Epithelial Cell (NONE) Urine Crystals Urine Bacteria (NONE) Urine Casts (NONE) Urine Mucus (NONE) Urine Trichomonas (NONE) Urine Yeast (NONE) Ur Culture Indicated? Microbiology 06/24/16 20:42 Stool Clostridium difficile (PCR) - Final 06/24/16 20:42 Stool Cryptosporidium/Giardia - Final 06/24/16 20:42 Stool WBC Smear - Final All the studies above are negative. For clostridium, Cryptosporidium, Giardia, and white blood cell smear. Patient Problems - Patient Problem List (1) Gastroenteritis Current Visit: Yes Status: Acute (2) Diverticulosis Current Visit: Yes Status: Acute Qualifiers: Diverticulosis site: diverticulosis of large intestine Diverticulosis bleeding: diverticulosis without bleeding Qualified Description: Diverticulosis of large intestine without hemorrhage Qualifier Code(s): ( K57.30) Diverticulosis of large intestine without perforation or abscess without bleeding (3) Acute renal failure Current Visit: Yes Status: Resolved Qualifiers: Acute renal failure type: unspecified Qualified Description: Acute renal failure, unspecified acute renal failure type Qualifier Code(s): ( N17.9) Acute kidney failure, unspecified (4) Hypertension Current Visit: Yes Status: Acute Qualifiers: Hypertension type: essential hypertension Qualified Description: Essential hypertension Qualifier Code(s): (I10) Essential (primary) hypertension (5) Hypercholesterolemia Current Visit: Yes Status: Acute (6) History of pulmonary embolism Current Visit: Yes Status: Acute
== END 2016-06-26 11:58 | disposition home or self-care (01) | DRG 684 ==
LOC: ER 09:27 → MED/SURG 11:30
PROVIDERS: ADMIT Family Medicine; ATTEND Family Medicine
DX: E86.0 Dehydration (principal); K52.9 Noninfective gastroenteritis and colitis, unspecified; N19 Unspecified kidney failure; N17.9 Acute kidney failure, unspecified; I10 Essential (primary) hypertension; E78.00 Pure hypercholesterolemia, unspecified; Z86.711 Personal history of pulmonary embolism; K57.90 Diverticulosis of intestine, part unspecified, without perforation or abscess without bleeding
CPT/HCPCS: 36415; 80048; 80053; 81001; 81003; 82150; 83690; 83735; 85025; 85610; 85730; 87046; 87205; 87328; 87329; 87493; 94761; 96361; 96374; 99285; J2405; J7030

== ENCOUNTER → 2016-07-02 | Outpatient (CLI) | payer OTHER, MEDICARE | LOC: MMPC 09:00 | PROVIDERS: ATTEND Nurse Practitioner Family | DX: N17.9 Acute kidney failure, unspecified (principal); I10 Essential (primary) hypertension; R53.83 Other fatigue | CPT/HCPCS: 99214; G0463 ==

== ENCOUNTER → 2016-09-08 | Outpatient (CLI) | payer OTHER, MEDICARE | LOC: MMPC 09:00 | PROVIDERS: ATTEND Nurse Practitioner Family | DX: G47.33 Obstructive sleep apnea (adult) (pediatric) (principal); G47.34 Idiopathic sleep related nonobstructive alveolar hypoventilation | CPT/HCPCS: 99213; G0463 ==

== ENCOUNTER → 2016-09-23 | Outpatient (CLI) | payer OTHER, MEDICARE | LOC: MMPC 09:00 | PROVIDERS: ATTEND Nurse Practitioner Family | DX: F32.9 Major depressive disorder, single episode, unspecified (principal); E78.5 Hyperlipidemia, unspecified; I10 Essential (primary) hypertension | CPT/HCPCS: 99214 ==

== ENCOUNTER → 2016-09-26 | Outpatient (CLI) | payer OTHER, MEDICARE ==
[2016-09-26 13:26] LABS: BLOOD UREA NITROGEN 13 mg/dL (7-22); BUN/CREATININE RATIO 18.57 (6-20); EST GLOMERULAR FILTRATION > 60 (>60 ml/min/1.73m(2)); GAMMA GLUTAMYL TRANSPEPTIDASE 28 IU/L (8-78)
[2016-09-26 13:53] LABS: CALCIUM 9.5 mg/dL (8.7-10.7); CHOL/HDL RATIO 2.91 RATIO (0-4.0); HDL CHOLESTEROL 45 mg/dL (40-150); SERUM CHOLESTEROL 131 mg/dL (120-200)
== END ==
LOC: MOB LAB 09:49
PROVIDERS: ATTEND Nurse Practitioner Family
DX: E78.5 Hyperlipidemia, unspecified (principal); I10 Essential (primary) hypertension; M13.89 Other specified arthritis, multiple sites; F32.0 Major depressive disorder, single episode, mild
CPT/HCPCS: 36415; 80048; 82247; 82465; 82550; 82977; 83718; 84075; 84450; 84460; 84478